=== PATIENT | male | born 1985 | race Caucasian/White ===

== ENCOUNTER 2018-08-23 16:09 | Emergency (ER) | payer BC ==
[2018-08-23 16:25] VITALS: BP 137/81
--- NOTE | 2018-08-23 16:33 | UC ---
Throat Pain/Nasal Shantanu HPI - HPI Summary HPI Summary: 33-year-old male presents with one-week history of progressively worsening nasal congestion, sinus pressure, sore throat, and productive cough. States over the past day he has had some subjective fever, fatigue, and chills. States both his and daughter have been ill with similar symptoms and her both on antibiotics at this time. Denies ear pain, dysphagia, chest pain, shortness of breath, abdominal pain, nausea, vomiting, diarrhea. - History of Current Complaint Chief Complaint: UCRespiratory Stated Complaint: SINUSES, CHEST CONGESTION Time Seen by Provider: 08/23/18 16:17 Hx Obtained From: Patient Pain Intensity: 6 - Allergies/Home Medications Allergies/Adverse Reactions: Allergies Allergy/AdvReac Type Severity Reaction Status Date / Time No Known Allergies Allergy Verified 08/23/18 16:25 Home Medications: Home Medications guaiFENesin ER TAB [Mucinex*] 600 mg PO BID 08/23/18 [History Confirmed 08/23/18 ] PMH/Surg Hx/FS Hx/Imm Hx Previously Healthy: Yes - Denies significant PMH - Surgical History Surgical History: None - Family History Known Family History: Positive: Non-Contributory - Social History Occupation: Employed Full-time Lives: With Family Alcohol Use: Daily Substance Use Type: None Smoking Status (MU): Never Smoked Tobacco Review of Systems All Other Systems Reviewed And Are Negative: Yes Constitutional: Positive: Fever - Subjective, Chills, Fatigue Skin: Negative: Rash Eyes: Negative: Drainage, Eye Redness ENT: Positive: Sore Throat, Nasal Discharge, Sinus Congestion, Sinus Pain/ Tenderness. Negative: Ear Ache Respiratory: Positive: Cough. Negative: Shortness Of Breath Cardiovascular: Negative: Palpitations, Chest Pain Gastrointestinal: Negative: Abdominal Pain, Vomiting, Diarrhea, Nausea Genitourinary: Positive: Negative Musculoskeletal: Positive: Negative Neurological: Positive: Negative Is Patient Immunocompromised?: No Physical Exam - Summary Physical Exam Summary: GENERAL APPEARANCE: Well developed, well nourished, alert and cooperative, and appears to be in no acute distress. EYES: Conjunctiva clear. No drainage. Vision is grossly intact. EARS: External auditory canals and tympanic membranes clear, hearing grossly intact. NOSE: Moderate nasal congestion with mucosal erythema and edema. Maxillary sinus tenderness. THROAT: Mild pharyngeal erythema with cobblestoning. No tonsilar inflammation, swelling, exudate, or lesions. Uvula midline. Oral cavity normal. Teeth and gingiva in good general condition. NECK: Neck supple, non-tender without lymphadenopathy. CARDIAC: Normal S1 and S2. No S3, S4 or murmurs. Rhythm is regular. There is no peripheral edema, cyanosis or pallor. Extremities are warm and well perfused. Capillary refill is less than 2 seconds. Peripheral pulses intact. LUNGS: Clear to auscultation without rales, rhonchi, wheezing or diminished breath sounds. Non-productive cough. ABDOMEN: Positive bowel sounds. Soft, nondistended, nontender. No guarding or rebound. No masses or hepatosplenomegally. MUSKULOSKELETAL: ROM intact to all extremities. No joint erythema or tenderness. Normal muscular development. Normal gait. SKIN: Skin normal color, texture and turgor with no lesions or eruptions. Triage Information Reviewed: Yes Vital Signs: Initial Vital Signs Temp 99.4 F 08/23/18 16:21 Pulse 98 08/23/18 16:21 Resp 16 08/23/18 16:21 BP 137/81 08/23/18 16:21 Pulse Ox 98 08/23/18 16:21 Vital Signs Reviewed: Yes Throat Pain/Nasal Course/Dx - Course Course Of Treatment: 33-year-old male presents with one-week history of progressively worsening nasal congestion, sinus pressure, sore throat, and productive cough. States over the past day he has had some subjective fever, fatigue, and chills. States both his and daughter have been ill with similar symptoms and her both on antibiotics at this time. Denies ear pain, dysphagia, chest pain, shortness of breath, abdominal pain, nausea, vomiting, diarrhea. Afebrile. Vital signs stable. Exam was remarkable for some mild to moderate nasal congestion with mucosal erythema and edema, maxillary sinus tenderness, mild pharyngeal erythema with cobblestoning, and a nonproductive cough. With the progressively worsening symptoms and subjective fever I will start him on amoxicillin 500 mg twice a day as well as symptomatic treatment for a URI. He is to follow-up with his primary care provider in 7 days if symptoms do not improve. Anticipatory guidance and warning symptoms were reviewed with the patient. Verbalizes understanding and agrees with plan of care. - Differential Dx/Diagnosis Differential Diagnosis/HQI/PQRI: Influenza, Pharyngitis, Sinusitis, Tonsillitis , URI Provider Diagnosis: Upper respiratory infection with cough and congestion Discharge - Sign-Out/Discharge Documenting (check all that apply): Patient Departure All imaging exams completed and their final reports reviewed: No Studies - Discharge Plan Condition: Stable Disposition: HOME Prescriptions: Amoxicillin 500 mg PO BID #20 cap Benzonatate CAP* [Tessalon 100 MG CAP*] 100 mg PO TID PRN #30 cap PRN Reason: Cough Fluticasone NASAL SPRAY 50MCG* [Flonase NASAL SPRAY 50MCG*] 2 spray BOTH NARES DAILY #1 btl Patient Education Materials: Upper Respiratory Infection (ED) Referrals: Elvis West PA [Primary Care Provider] - 7 Days (If no improvement.) Additional Instructions: Your history and exam are consistent with an upper respiratory infection. We will start you on an antibiotic for the infection. Start amoxicillin 500 mg twice a day for 10 days. Be sure to finish the entire course even if feeling better. Drink plenty of fluids to avoid dehydration especially if you are running any fever. Use a saline rinse kit such as Neti Pot or NeilMed at least twice a day to help thin secretions and promote drainage of the sinuses. Use fluticasone (Flonase) nasal spray 2 sprays each nostril once daily. Use an over the counter decongestant such as Sudafed for congestion. Take over the counter acetaminophen (Tylenol) or ibuprofen (Advil, Motrin) according to directions as needed for pain or fever. Use salt water gargles several times a day if you have a sore throat. You may also use Chloraseptic spray or Cepacol lonzenges according to directions which contain a numbing medication and can provide some temporary relief from your sore throat. Follow up with your primary care provider in 7 days if symptoms persist. Seek immediate medical attention in the emergency room if you have fever greater than 100.5 F despite taking acetaminophen or ibuprofen, have chest pain , difficulty breathing, are unable to swallow, or have any worsening of symptoms. - Billing Disposition and Condition Condition: STABLE Disposition: Home - Attestation Statements Provider Attestation: Per institutional requirements, I have reviewed the chart, however, I was not consulted specifically or made aware of this patient by the midlevel provider. I did not personally evaluate, interact with , or disposition this patient.
== END 2018-08-23 16:38 | disposition home or self-care (01) ==
LOC: UCCORT 16:09
DX: J06.9 Acute upper respiratory infection, unspecified (principal); R05 Cough; R09.81 Nasal congestion
CPT/HCPCS: 99212; G0463

== ENCOUNTER 2018-08-25 07:34 | Emergency (ER) | payer BC ==
[2018-08-25 07:47] VITALS: BP 142/80
--- NOTE | 2018-08-25 08:09 | UC ---
Eye Complaint HPI - HPI Summary HPI Summary: bilateral eye redness x 1 day yellow discharge, no eye pain , no change in vision , no photophobia his son was diagnosed with pink eye no fever, recent hx of sinusitis , no abx - History of Current Complaint Chief Complaint: UCEye Stated Complaint: BILATERAL EYE Time Seen by Provider: 08/25/18 07:48 Hx Obtained From: Patient Onset/Duration: Gradual Onset, Lasting Days - 1, Still Present Timing: Constant Severity Initially: Moderate Severity Currently: Moderate Pain Intensity: 0 Location of Injury: Conjunctiva - redness, no injury Aggravating Factor(s): Nothing Alleviating Factor(s): Nothing Associated Signs And Symptoms: Positive: Drainage (Purulent) - bilateral. Negative: Photophobia, Drainage (Clear), Vision Impairment Bilateral, Vision Impairment Right, Vision Impairment Left, Fever, Swelling - Allergies/Home Medications Allergies/Adverse Reactions: Allergies Allergy/AdvReac Type Severity Reaction Status Date / Time No Known Allergies Allergy Verified 08/25/18 07:43 PMH/Surg Hx/FS Hx/Imm Hx Previously Healthy: Yes - Surgical History Surgical History: None - Family History Known Family History: Positive: Non-Contributory - Social History Alcohol Use: Daily Substance Use Type: None Smoking Status (MU): Never Smoked Tobacco Review of Systems All Other Systems Reviewed And Are Negative: Yes Constitutional: Positive: Negative Skin: Positive: Negative Eyes: Positive: Drainage, Eye Redness ENT: Positive: Negative Is Patient Immunocompromised?: No Physical Exam Triage Information Reviewed: Yes Appearance: Well-Appearing, No Pain Distress, Well-Nourished Vital Signs: Initial Vital Signs Temp 97.3 F 08/25/18 07:42 Pulse 88 08/25/18 07:42 Resp 16 08/25/18 07:42 BP 142/80 08/25/18 07:42 Pulse Ox 100 08/25/18 07:42 Vital Signs Reviewed: Yes Eyes: Positive: Conjunctiva Inflamed - bilateral, Discharge - bilateral ENT: Positive: Normal ENT inspection, Hearing grossly normal, Pharynx normal, Nasal congestion, Nasal drainage, TMs normal. Negative: Pharyngeal erythema Neck: Positive: Supple, Nontender, No Lymphadenopathy Respiratory: Positive: Chest non-tender, Lungs clear, Normal breath sounds Cardiovascular: Positive: RRR, No Murmur, Pulses Normal Skin Exam: Normal Eye Complaint Course/Dx - Differential Dx/Diagnosis Provider Diagnosis: Conjunctivitis Discharge - Sign-Out/Discharge Documenting (check all that apply): Patient Departure All imaging exams completed and their final reports reviewed: No Studies - Discharge Plan Condition: Stable Disposition: HOME Prescriptions: Tobramycin 0.3% OPHTH.[email or web address]* 1 drop BOTH EYES Q4H #1 btl Patient Education Materials: Conjunctivitis (ED) Referrals: Elvis West PA [Primary Care Provider] - If Needed - Billing Disposition and Condition Condition: STABLE Disposition: Home
== END 2018-08-25 08:00 | disposition home or self-care (01) ==
LOC: UCCORT 07:34
DX: H10.9 Unspecified conjunctivitis (principal)
CPT/HCPCS: 99212; G0463

== ENCOUNTER 2019-04-02 16:09 | Emergency (ER) | payer BC ==
[2019-04-02 16:22] VITALS: BP 136/72
--- NOTE | 2019-04-02 16:51 | UC ---
Eye Complaint HPI - HPI Summary HPI Summary: Patient is a 33yo male presenting with L eye discharge, redness, and intermittent blurry vision x3 days. Patient notes discharge crusted when he wake up and some throughout the day as well. Notes URI symptoms last week that have since resolved. Denies R eye symptoms. Denies photophobia or pain with eye movement. Patient states he does wear contacts but has not worn them in a couple months. Denies environmental allergies. - History of Current Complaint Chief Complaint: UCEye Stated Complaint: EYE COMPLAINT Hx Obtained From: Patient Onset/Duration: Sudden Onset, Lasting Days Pain Intensity: 0 Pain Scale Used: 0-10 Numeric - Allergies/Home Medications Allergies/Adverse Reactions: Allergies Allergy/AdvReac Type Severity Reaction Status Date / Time No Known Allergies Allergy Verified 04/02/19 16:18 Home Medications: Home Medications ALPRAZolam TAB* [Xanax TAB*] 1 tab DAILY PRN 04/02/19 [History Confirmed ] PMH/Surg Hx/FS Hx/Imm Hx Previously Healthy: Yes - Surgical History Surgical History: None - Family History Known Family History: Positive: Non-Contributory - Social History Occupation: Employed Full-time Alcohol Use: Daily Alcohol Amount: 1 beer/night Substance Use Type: None Smoking Status (MU): Never Smoked Tobacco Review of Systems All Other Systems Reviewed And Are Negative: Yes Constitutional: Positive: Negative. Negative: Fever, Chills Eyes: Positive: Blurred Vision, Drainage, Eye Redness. Negative: Diplopia, Photophobia ENT: Positive: Negative Respiratory: Positive: Negative Cardiovascular: Positive: Negative Gastrointestinal: Positive: Negative Neurological: Positive: Negative Physical Exam Triage Information Reviewed: Yes Appearance: Well-Appearing, No Pain Distress, Well-Nourished Vital Signs: Initial Vital Signs Temp 97.5 F 04/02/19 16:19 Pulse 86 04/02/19 16:19 Resp 16 04/02/19 16:19 BP 136/72 04/02/19 16: Pulse Ox 100 04/02/19 16:19 Vital Signs Reviewed: Yes Eyes: Positive: Conjunctiva Inflamed - L eye, Discharge - green discharge in medial canthus L eye, Other: - PERRLA. EOM intact ENT: Positive: Hearing grossly normal, Pharynx normal Neck: Positive: Supple Respiratory Exam: Normal Respiratory: Positive: Lungs clear, Normal breath sounds, No respiratory distress Cardiovascular Exam: Normal Cardiovascular: Positive: RRR Neurological: Positive: Alert Psychological: Positive: Age Appropriate Behavior Eye Complaint Course/Dx - Course Course Of Treatment: I treated with polytrim for bacterial conjunctivitis. Instructed not to use contacts until symptoms resolve and to wash hands often. Instructed to follow up with pcp if symptoms persist. Patient voiced understanding and agreed to the treatment plan. - Differential Dx/Diagnosis Provider Diagnosis: Acute conjunctivitis, left eye Discharge ED - Sign-Out/Discharge Documenting (check all that apply): Patient Departure All imaging exams completed and their final reports reviewed: No Studies - Discharge Plan Condition: Stable Disposition: HOME Prescriptions: Polymyx/Trimethoprim OPTH* [Polytrim OPHTH*] 1 drop BOTH EYES TID 5 Days #1 btl Patient Education Materials: Conjunctivitis (ED) Referrals: Elvis West PA [Primary Care Provider] - If Needed Additional Instructions: As discussed, use the antibiotic eye drops as prescribed for treatment of your conjunctivitis. Do not wear contacts until your symptoms have fully resolved. Make sure you wash your hands often and wipe down surfaces at home. Follow up with your PCP if your symptoms persist longer than 1 week. - Billing Disposition and Condition Condition: STABLE Disposition: Home
== END 2019-04-02 16:44 | disposition home or self-care (01) ==
LOC: UCCORT 16:09
DX: H10.32 Unspecified acute conjunctivitis, left eye (principal); B96.89 Other specified bacterial agents as the cause of diseases classified elsewhere
CPT/HCPCS: 99212; G0463

== ENCOUNTER 2019-05-19 14:54 | Emergency (ER) | payer BC ==
[2019-05-19 15:42] VITALS: BP 141/71
[2019-05-19] MEDS ORDERED: Ondansetron ODT TAB* 4 MG PO ONE (15:45)
--- NOTE | 2019-05-19 15:52 | UC ---
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 Low intake today because he has felt so nauseated. Has felt short of breath although he has not had any cough associated with this illness. Concerned because his is in the second trimester of her second . - History of Current Complaint Chief Complaint: UCGeneralIllness Stated Complaint: FLU LIKE SYMPTOMS Time Seen by Provider: 05/19/19 15:42 Hx Obtained From: Patient Onset/Duration: Sudden Onset, Lasting Hours Severity Currently: Mild Severity Initially: Moderate Pain Intensity: 4 Associated Signs & Symptoms: Positive: Myalgia, Headache, Vomiting, Diarrhea - Risk Factors Influenza Risk Factors: Negative - Allergy/Home Medications Allergies/Adverse Reactions: Allergies Allergy/AdvReac Type Severity Reaction Status Date / Time No Known Allergies Allergy Verified 05/19/19 15:42 PMH/Surg Hx/FS Hx/Imm Hx Previously Healthy: Yes - Surgical History Surgical History: None - Family History Known Family History: Positive: Non-Contributory - Social History Occupation: Employed Full-time Lives: With Family Alcohol Use: Daily Alcohol Amount: 1 beer/night Substance Use Type: None Smoking Status (MU): Never Smoked Tobacco Review of Systems All Other Systems Reviewed And Are Negative: Yes Constitutional: Positive: Chills, Fatigue Skin: Positive: Negative Eyes: Positive: Negative ENT: Positive: Negative Respiratory: Positive: Shortness Of Breath Cardiovascular: Positive: Negative Gastrointestinal: Positive: Vomiting, Diarrhea, Nausea Genitourinary: Positive: Negative Motor: Positive: Negative Neurovascular: Positive: Negative Musculoskeletal: Positive: Myalgia Neurological: Positive: Headache Psychological: Positive: Negative Is Patient Immunocompromised?: No Physical Exam Triage Information Reviewed: Yes Appearance: Ill-Appearing - looks fatigued and unwell Vital Signs: Initial Vital Signs Temp 98.7 F 05/19/19 15:38 Pulse 111 05/19/19 15:38 Resp 20 05/19/19 15:38 BP 141/71 05/19/19 15:38 Pulse Ox 99 05/19/19 15:38 Eyes: Positive: Conjunctiva Clear ENT: Positive: Pharynx normal, TMs normal Neck: Positive: Supple, Nontender, No Lymphadenopathy Respiratory: Positive: Lungs clear, Normal breath sounds, No respiratory distress Cardiovascular: Positive: No Murmur, Tachycardia Abdomen Description: Positive: Nontender, No Organomegaly, Soft Bowel Sounds: Positive: Present Musculoskeletal Exam: Normal Musculoskeletal: Positive: Strength Intact Neurological: Positive: Alert Psychological Exam: Normal Skin Exam: Normal Skin: Negative: Rashes Diagnostics - Laboratory Lab Results: Rapid flu negative. Flu Course/Dx - Course Course Of Treatment: Ondansetron given for relief of nausea. Discussed maintaining hydration in the face of nausea and vomiting. Follow up as needed. - Differential Dx/Diagnosis Differential Diagnosis/HQI/PQRI: Influenza, Other - viral syndrome Provider Diagnosis: Viral syndrome Discharge ED - Sign-Out/Discharge Documenting (check all that apply): Patient Departure All imaging exams completed and their final reports reviewed: No Studies - Discharge Plan Condition: Stable Disposition: HOME Prescriptions: Ondansetron ODT TAB* [Zofran 4 MG Odt TAB*] 4 mg PO Q6H PRN #10 tab.odt PRN Reason: Nausea Patient Education Materials: Viral Syndrome (ED) Referrals: Orlando Brizuela MD [Primary Care Provider] - Additional Instructions: You have tested negative for influenza, and have a viral illness. Please focus on staying hydrated, with frequent sips of clear fluid. You can use ondansetron every 6 hours as needed for nausea. Progress to easily digestible foods as your appetite returns (soups, pasta, cooled fruits and vegetables). - Billing Disposition and Condition Condition: STABLE Disposition: Home
[2019-05-19 16:02] LABS: Influenza A Molecular NEGATIVE (Negative); Influenza B Molecular NEGATIVE (Negative)
== END 2019-05-19 16:20 | disposition home or self-care (01) ==
LOC: UCCORT 14:54
DX: B34.9 Viral infection, unspecified (principal); R53.81 Other malaise; M79.10 Myalgia, unspecified site; R51 Headache; R19.7 Diarrhea, unspecified; R11.10 Vomiting, unspecified
CPT/HCPCS: 99212; A9270-GY; G0463